=== PATIENT | female | born 1945 | race Hispanic/Latino ===

== ENCOUNTER 2023-11-07 18:45 | Emergency (ER) | payer OTHER, SELFPAY ==
[2023-11-07 18:52] VITALS: BP 121/70; PULSE 72; RESP 16; TEMP 36.1; O2SAT 98
--- NOTE | 2023-11-07 20:06 | ED.WOUNDLAC ---
HPI - Wound/Laceration General Chief Complaint: Wound/Laceration Stated Complaint: Cut leg Time Seen by Provider: 11/07/23 19:49 Source: patient, family and RN notes reviewed Mode of arrival: ambulatory Limitations: no limitations History of Present Illness HPI narrative: Family present patient today complaining of a wound to her right leg. Yesterday she was at [employer] and a pew got pushed into her leg. It was cleaned yesterday and antibiotic ointment was applied. She is up-to-date on her tetanus vaccine Related Data Allergies Allergy/AdvReac Type Severity Reaction Status Date / Time No Known Allergies Allergy Unverified 11/07/23 18:52 Review of Systems Review of Systems: CONSTITUTIONAL: Denies body aches, fever, chills, or sweats. EYES: Denies visual changes, redness, or discharge. ENT: Denies rhinorrhea, congestion, sore throat, or otalgia. CARDIOVASCULAR: Denies chest pain, palpitations, or edema. RESPIRATORY: Denies cough or dyspnea. GASTROINTESTINAL: Denies abdominal pain, nausea, vomiting, or diarrhea. GENITOURINARY: Denies dysuria or hematuria. SKIN: + wound right lower leg MUSCULOSKELETAL: Denies back pain, joint pain, or myalgia. NEUROLOGIC: Denies headache, numbness, tingling, or weakness. PSYCH: Denies depression or anxiety. PMFSH Comments At time of signature, I have reviewed and agree with nursing past medical, surgical, social and family history unless otherwise noted. Please see nursing chart for further information. There is no relevant family history pertinent to the presenting complaint Exam Narrative: GENERAL: Well-appearing, well-nourished, and in no acute distress. HEAD: Normocephalic, atraumatic. EYES: EOMI. No redness or drainage. Conjunctivae normal. ENT: Mucous membranes pink and moist. NECK: Normal AROM. CHEST: No respiratory distress. EXTREMITIES: Patient has a 5 x 3 cm partial skin tear to the right lower leg where the skin is partially peeled back. No surrounding erythema, edema. There is some surrounding ecchymosis. Tender to palpation. SKIN: Warm, dry, no rash. Capillary refill normal. Normal skin turgor. NEURO: No focal deficits. Alert and oriented x3. Gait steady. PSYCH: Normal affect. No signs of depression or anxiety. Course Course Level of Care: Express Care Visit Vital Signs Vital signs: Vital Signs Temperature 96.9 F L 11/07/23 18:52 Pulse Rate 72 11/07/23 18:52 Respiratory Rate 16 11/07/23 18:52 Blood Pressure 121/70 11/07/23 18:52 Pulse Oximetry 98 11/07/23 18:52 Oxygen Delivery Room Air 11/07/23 18:52 Temperature 96.9 F L 11/07/23 18:52 Pulse Rate 72 11/07/23 18:52 Respiratory Rate 16 11/07/23 18:52 Blood Pressure 121/70 11/07/23 18:52 Pulse Oximetry 98 11/07/23 18:52 Oxygen Delivery Room Air 11/07/23 18:52 Reviewed MDM - Wound/Laceration MDM Narrative Medical decision making narrative: Attempt was made to moisten the skin tear to replace the skin to its proper position. Patient could not handle the discomfort, so this was stopped. Nonadherent dressing was applied. Patient will be placed on Keflex to prevent infection. Anticipatory guidance given. Differential Diagnosis Differential diagnosis: Likely laceration, abrasion and avulsion of skin Critical Care Time Critical Care Time Critical Care Time: No Discharge Plan Discharge Clinical Impression: Noninfected skin tear of right leg Qualifiers: Encounter type: initial encounter Qualified Code(s): S81.811A - Laceration without foreign body, right lower leg, initial encounter Patient Disposition: Home, Self-Care Condition: Stable Instructions: Antibiotic Form, Skin Tear (ED) Additional Instructions: Please give the Keflex as prescribed until gone. Take Tylenol for pain. Monitor for any signs of infection such as redness, swelling, increased pain or drainage comments your doctor if you note any. Wash daily with soap and water. Wilfrido
== END 2023-11-07 20:14 | disposition home or self-care (01) ==
PROVIDERS: Emergency Provider Nurse Practitioner; PCP Physician Assistant
DX: S81.811A Laceration without foreign body, right lower leg, initial encounter (principal); W22.8XXA Striking against or struck by other objects, initial encounter
CPT/HCPCS: 99203; G0463

== ENCOUNTER 2024-09-07 10:33 | Outpatient (CLI) | payer OTHER, SELFPAY ==
--- NOTE | ~2024-09-07 | XR_ITS ---
Right Shoulder Technique: AP and scapular Y views were obtained. Clinical History: Pain Findings: No fracture or dislocation is seen. Osseous alignment is anatomic. The glenohumeral and acr omioclavicular joint spaces are preserved. Soft tissues are unremarkable. Impression: Unremarkable right shoulder radiographs. Reviewed, dictated and finalized at [facility]. [employer] Impression: Unremarkable right shoulder radiographs.
== END 2024-09-07 10:34 | disposition home or self-care (01) ==
PROVIDERS: PCP Physician Assistant; Visit Provider Physician Assistant
DX: M25.511 Pain in right shoulder (principal)
CPT/HCPCS: 73030